=== PATIENT | female | born 1935 ===

== ENCOUNTER 2022-05-08 21:39 | Inpatient (IN) ==
[2022-05-09] MEDS ORDERED: Naloxone 0.4 MG/ML INJ IVP PRN ×2 (03:30→03:31)
[2022-05-09] MEDS ORDERED: Acetaminophen 325 MG TABLET PO PRN (03:31)
[2022-05-09] MEDS ORDERED: Ondansetron 4 MG/2 ML VIAL IVP PRN (03:31)
[2022-05-09] MEDS ORDERED: Fluticasone Propionate Nasal 50 MCG/SPRAY BOTTLE NS PRN (03:33)
[2022-05-09] MEDS ORDERED: Ipratropium/Albuterol Neb 3 ML IH PRN (04:00)
[2022-05-09] MEDS ORDERED: MethylPREDNISolone 40 MG/ML VIAL IVP SCH (06:00)
[2022-05-09] MEDS: Tiotropium 10 INH DOSE IH SCH (06:26)
[2022-05-09 06:56] LABS: Hematocrit 35.3 % (35.3-44.9); Hemoglobin 11.2 g/dL (11.5-15.4); Immature Granulocytes % 0.5 % (0-4); Lymphocytes # 0.7 K/mcL (0.6-4.6); Mean Corpuscular HGB Conc 31.7 g/dL (31.6-35.5); Mean Corpuscular Hemoglobin 29.9 pg (28.0-33.3); Mean Corpuscular Volume 94.4 fL (83.0-100.0); Mean Platelet Volume 10.7 fL (9.4-12.4); Monocytes # 0.1 K/mcL (0.0-1.3); Monocytes % 1.6 %; Neutrophils # 5.5 K/mcL (1.6-8.9); Platelet Count 184 K/mcL (140-400); Red Blood Count 3.74 M/mcL (3.82-4.97); Red Cell Distribution Width 13.5 % (11.5-14.5); Segmented Neutrophils % 86.9 %; White Blood Count 6.4 K/mcL (4.3-11.1)
[2022-05-09 07:06] LABS: INR 1.1; Prothrombin Time 12.8 Seconds (9.4-12.1)
[2022-05-09 07:07] LABS: BUN/Creatinine Ratio 35 (6-26); Blood Urea Nitrogen 19 mg/dL (8-23); Calcium 8.7 mg/dL (8.6-10.3); Carbon Dioxide 32 mEq/L (23-29); Chloride 97 mEq/L (98-107); Glucose 182 mg/dL (70-105); Magnesium 1.9 mg/dL (1.6-2.6); Osmolality,Calculated 291 (280-300); Potassium 4.1 mEq/L (3.5-5.1); Sodium 137 mEq/L (136-145)
[2022-05-09 07:16] LABS: Troponin I < 0.03 ng/mL (< 0.04)
[2022-05-09] MEDS: amLODIPine 5 MG TABLET PO SCH (10:09)
[2022-05-09] MEDS: Cyanocobalamin (B-12) 1,000 MCG TABLET PO SCH (10:09)
[2022-05-09] MEDS: Loratadine 10 MG TABLET PO SCH (10:09)
[2022-05-09] MEDS: Apixaban 2.5 MG TABLET PO SCH ×2 (10:09→19:56)
[2022-05-09] MEDS: Azithromycin 500 MG in 0.9 % Sodium Chloride 250 ML IVPB SCH ×2 (10:14→11:31)
[2022-05-09] MEDS: CICLOPIROX TP SCH (11:29)
[2022-05-09] MEDS ORDERED: predniSONE 20 MG TABLET PO ONE (11:32)
[2022-05-09] MEDS: levoFLOXacin 500 MG TABLET PO SCH (11:58)
[2022-05-09] MEDS ORDERED: D5% in Water 1,000 ML IVC PRN (15:57)
[2022-05-09] MEDS ORDERED: *HR* Dextrose 50 % in Water (Syg) 50 ML SYRINGE IVP PRN (15:57)
[2022-05-09] MEDS ORDERED: Dextrose Gel 15 GM/37.5 ML TUBE PO PRN ×2 (15:57)
[2022-05-09] MEDS: Insulin LISPRO 300 UNITS/3 ML VIAL SUBQ SCH (17:41)
[2022-05-09] MEDS ORDERED: Insulin LISPRO 300 UNITS/3 ML VIAL SUBQ SCH (21:00)
[2022-05-09] MEDS: Ipratropium/Albuterol Neb 3 ML IH SCH (22:09)
[2022-05-10 00:49] LABS: Bilirubin,Urine Negative (Negative); Blood,Urine Negative (Negative); Clarity,Urine Clear (Clear); Color,Urine Yellow (Yellow); Glucose,Urine (UA) Normal (Normal); Ketones,Urine Negative (Negative); Leukocyte Esterase,Urine Negative (Negative); Nitrite,Urine Negative (Negative); PH,Urine 6.5 pH Units (5.0-8.0); Protein,Urine Negative (Neg-Trace); Specific Gravity,Urine 1.015 (1.010-1.025); Urobilinogen,Urine Normal (Normal)
[2022-05-10] MEDS: Ipratropium/Albuterol Neb 3 ML IH SCH ×2 (04:44→10:19)
[2022-05-10 07:15] LABS: Thyroid Stimulating Hormone 1.29 mcIU/mL (0.340-5.600)
[2022-05-10 07:25] LABS: Albumin 3.7 g/dL (3.5-5.7); Albumin/Globulin Ratio 1.1 (1.1-2.2); Bilirubin,Total 0.3 mg/dL (0.3-1.0); Globulin 3.5 g/dL (2.4-3.5); Magnesium 2.1 mg/dL (1.6-2.6); Potassium 4.1 mEq/L (3.5-5.1); Total Protein 7.2 g/dL (6.4-8.9)
[2022-05-10 07:32] LABS: Hemoglobin 11.5 g/dL (11.5-15.4); Mean Corpuscular HGB Conc 31.9 g/dL (31.6-35.5); Mean Corpuscular Hemoglobin 30.3 pg (28.0-33.3); Mean Corpuscular Volume 94.7 fL (83.0-100.0); Mean Platelet Volume 11.3 fL (9.4-12.4); Platelet Count 176 K/mcL (140-400); Red Cell Distribution Width 14.1 % (11.5-14.5); White Blood Count 10.5 K/mcL (4.3-11.1)
[2022-05-10] MEDS: amLODIPine 5 MG TABLET PO SCH (08:02)
[2022-05-10] MEDS: Cyanocobalamin (B-12) 1,000 MCG TABLET PO SCH (08:02)
[2022-05-10] MEDS: levoFLOXacin 500 MG TABLET PO SCH (08:03)
[2022-05-10] MEDS: Loratadine 10 MG TABLET PO SCH (08:04)
[2022-05-10] MEDS: Apixaban 2.5 MG TABLET PO SCH (08:04)
[2022-05-10] MEDS: Insulin LISPRO 300 UNITS/3 ML VIAL SUBQ SCH (08:05)
[2022-05-10 08:37] VITALS: O2SAT 97
[2022-05-10] MEDS ORDERED: predniSONE 20 MG TABLET PO SCH (09:00)
[2022-05-10 09:53] LABS: Adenovirus Not Detected (Not Detect); Bordetella Pertussis Not Detected (Not Detect); Chlamydophila pneumoniae Not Detected (Not Detect); Coronavirus 229E Not Detected (Not Detect); Coronavirus HKU1 Not Detected (Not Detect); Coronavirus NL63 Not Detected (Not Detect); Coronavirus OC43 Not Detected (Not Detect); Human Metapneumovirus Not Detected (Not Detect); Human Rhinovirus/Enterovirus Not Detected (Not Detect); Influenza A Subtype 2009 H1 Not Detected (Not Detect); Influenza B Not Detected (Not Detect); Mycoplasma pneumoniae Not Detected (Not Detect); Parainfluenza Virus 1 Not Detected (Not Detect); Parainfluenza Virus 2 Not Detected (Not Detect); Parainfluenza Virus 3 Not Detected (Not Detect); Parainfluenza Virus 4 Not Detected (Not Detect); Respiratory Syncytial Virus Not Detected (Not Detect); SARS-CoV-2 Not Detected (Not Detect)
[2022-05-10] MEDS: Tiotropium 10 INH DOSE IH SCH (10:17)
[2022-05-10 10:25] LABS: Calcium 8.9 mg/dL (8.6-10.3)
[2022-05-10] MEDS: CICLOPIROX TP SCH (11:05)
[2022-05-10 11:43] VITALS: BP 150/65; PULSE 74; RESP 14; TEMP 97.7
[2022-05-10 18:28] LABS: Estimated Average Glucose 126 mg/dl
== END 2022-05-10 16:05 | disposition home health service (06) | DRG 190 ==
LOC: INPGRE
PROVIDERS: ADMIT Family Medicine; ATTEND Family Medicine